=== PATIENT | male | born 1940 | race Caucasian/White ===

== ENCOUNTER 2020-07-22 19:43 | Emergency (ER) | payer MEDICARE, OTHER ==
--- NOTE | 2020-07-22 20:39 | EDM.PDOC ---
ED HPI GENERAL MEDICAL PROBLEM - General Chief Complaint: Genitourinary Problem Stated Complaint: UROLOGY Time Seen by Provider: 07/22/20 19:45 - History of Present Illness INITIAL COMMENTS - FREE TEXT/NARRATIVE: HISTORY AND PHYSICAL: History of present illness: This is an 80-year-old gentleman who was sent into the ER today for assistance with Boudreaux catheter placement. Patient reports that he lives at home with his who assist with caring for him. Patient has diffuse anasarca resulting in significant edema of his uncircumcised foreskin of his penis. Multiple attempts were attempted by the nurse and the physician at his facility to place a Boudreaux catheter unsuccessfully. Patient was sent to the ER for assistance with Boudreaux catheter placement. Patient denies any other symptomatology. Review of systems: As per history of present illness and below otherwise all systems reviewed and negative. Past medical history: As per history of present illness and as reviewed below otherwise noncontributory. Surgical history: As per history of present illness and as reviewed below otherwise noncontributory. Social history: No reported history of drug or alcohol abuse. Family history: As per history of present illness and as reviewed below otherwise noncontributory. Physical exam: Constitutional: Patient is oriented to person, place, and time. Appears well- developed and well-nourished. No distress. HEENT: Dry mucous membranes Head: Normocephalic and atraumatic Eyes: Right eye exhibits no discharge. Left eye exhibits no discharge. No scleral icterus Neck: Normal range of motion. No tracheal deviation present. Cardiovascular: Irregularly irregular, tachycardic Pulmonary: Effort normal, no respiratory distress. Abdominal: Large mass right flank, anasarca identified to umbilicus. Patient was marked edema to his left upper extremity. Musculoskeletal: Patient with marked edema to his left upper extremity and bilateral lower extremities. Patient with significant amount of erythema, war mth to left upper extremity Neurologic: Alert and oriented to person, place and time. Skin: [place], anasarca, cellulitis left upper extremity Psychiatric: Normal mood and affect. Behavior is normal. Judgment and thought content normal. Nursing note and vital signs have been reviewed As ER physical exam is significant for markedly edematous foreskin that is uncircumcised. Patient's penis is retracted significantly within the edematous foreskin. Unable to visualize the head of the meatus secondary to the edema and difficulty to reduce the significant edema to his foreskin. This patient was seen and evaluated during the 2019 SARS-CoV-2 novel coronavirus pandemic period. Community viral transmission is ongoing at time of this encounter and the emergency department is operating under pandemic response procedures. Assessment and plan: 80-year-old gentleman presents ER today for Boudreaux catheter placement that was difficult to place at his home. Patient does have a significant amount of edema. Multiple attempts were made with a blind catheterization secondary to the retracted penis and significant edema of his uncircumcised foreskin. Utilizing an anoscope to assist with visualization of his meatus, were able to identify the urethral opening. Utilizing a stylette to assist with rigidity of the Boudreaux catheter, a 22 Armenian Boudreaux catheter with a 10 cc balloon was easily inserted into his urethral opening. A significant amount of dark yellow clear urine was obtained. Urine was sent for urinalysis. Boudreaux bag was placed on the catheter. Tolerated procedure well. Procedure: Boudreaux catheter placed utilizing stylette for rigidity and guidance into the urethral opening. Patient tolerated procedure well. No bleeding identified or trauma identified. 9 PM: Called to see patient secondary to patient currently in A. fib with RVR. Patient currently has a heart rate of 169 in the ED. Patient's blood pressure is 90/45. Patient reports he has no history significant for atrial fibrillation, rapid heart rates, irregular heart rates in the past. Patient currently is not complaining of any chest pain or shortness of breath. Patient denies any recent fevers, shakes, chills, nausea, vomiting, diarrhea. Upon arrival to the ED, the patient's heart rate has been fluctuating between 75 and 116 bpm. In reviewing EMS records, the patient was slightly tachycardic in r oute to the ED with no documentation of atrial fibrillation. Patient currently appears to be in new onset A. fib with RVR after Boudreaux catheter placement. Patient's blood pressure is low, it appears that his pressure has been running in that same range even prior to his A. fib with RVR. We will initiate a Cardizem drip without a bolus given his low blood pressure. We have considered electrical cardioversion secondary to his low blood pressure and A. fib with RVR however patient currently is clinically asymptomatic and I do not feel that electrical cardioversion will be warranted at this time. I think patient be best served with attempting chemical cardioversion with Cardizem initially and reevaluating if his blood pressure does not tolerate it. Critical Care: The high probability of sudden, clinically significant deterioration in the patient's condition required the highest level of my preparedness to intervene urgently. The services I provided to this patient were to treat and/or prevent clinically significant deterioration. Services included the following: chart data review, reviewing nursing notes and/or old charts, documentation time, customer service sales consultant collaboration regarding findings and treatment options, medication orders and management, direct patient care, vital sign assessments and ordering, interpreting and reviewing diagnostic studies/lab tests. Aggregate critical care time includes only time during which I was engaged inwork directly related to the patient's care, as described above, whether at the bedside or elsewhere in the Emergency Department. It did not in clude time spent performing other reported procedures or the services of residents, students, nurses or physician assistants. Critical Care Time: 35 minutes 12:09 AM: Addendum to patient's care secondary to complexity of patient's history. I was able to contact [facility] to try to obtain some records. Apparently patient was admitted to [facility] on Saturday for evaluation of his anasarca and evaluation for physical therapy/rehab placement. I was able to contact his PA, Raúl Garcia who was able to give me a significant amount of history on his patient. 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 Patient is currently being treated palliatively with comfort measures. Patient has been evaluated by multiple surgeons and no surgical intervention has been advised by any surgeon given his multiple comorbidities. Patient also has a history significant for anemia of chronic disease, anasarca, hypoalbuminemic state, acute ME, hypertension, CAD, squamous cell CA, who was [place] [facility] [place] [facility] for social reasons. Patient lives at home with his who is unable to care for him any further. Patient is a somewhat large individual and she reports to adding that she is unable to transfer or care for him at home. Patient was admitted to the hospital for further evaluation of his anasarca and to assist with some diuresis and to assist with obtaining placement for physical therapy/rehab for the patient. While at [facility], patient was given a small dose of Lasix IV earlier today which resulted in no significant urinary output and a slight decrease in his blood pressure. Patient's blood pressure is 85/60 upon arrival here in the ED. Patient was transferred to [facility] for evaluation of Boudreaux catheter placement. It appears that the care provider as well as the nurses at [facility] tried multiple times unsuccessfully to place a Boudreaux catheter in the patient. At multiple times were unsuccessful secondary to a significant amount of anasarca and swelling of the patient's uncircumcised foreskin and with a markedly retracted penis. According to Raúl, patient was planned on receiving IV albumin today to assist with his anasarca and blood pressure. According to Raúl, patient's white blood cell count on arrival to the hospital was approximately 12,000. Patient's WBC count currently is greater than 20 K with a marked left shift. Patient's records were reviewed and patient does not have a history notable for atrial fibrillation. After placement of patient's Boudreaux catheter, patient was noted to be in A. fib with RVR. Patient's blood pressure has been low however according to abdomen his blood pressure was low upon transfer. He does have a history of hypertension and his metoprolol was DC'd today. In the ED, the patient was started on a Cardizem drip without a bolus. Patient currently is in sinus tachycardia with a heart rate of 120. Patient does still go in and out of A. fib in sinus rhythm while here in the ED. It is unclear whether or not the patient's tachycardia is secondary to sepsis versus intravascular depletion secondary to the Lasix. Patient will be given a 500 cc bolus of IV fluids to counteract the recent Lasix that was given to the patient. While in the hospital, patient's PA, Raúl Garcia, had a long conversation with the patient and the patient wishes to be a full code, although when I have spoken to patient's over the phone and she feels patient should be a DNR. Patient currently is alert awake and orient x3 and had a conversation over the phone on speaker with him and his and patient has affirmed that he wants to be a full code and wants CPR. Patient does not appear to be confused and appears to have insight in his condition. Patient was able to relay to me that CPR should for cardiopulmonary resuscitation. At this time I will need to respect the patient's wishes and the patient will need to be admitted for more aggressive treatment. When I have spoken to Raúl Valdes, he does not feel that [facility] is an appropriate place given his multiple issues that are currently being diagnosed here in the ED. As the patient is a full code, he will need higher level of care. Patient received vancomycin and Zosyn IV for broad-spectrum antibiotic for treatment of cellulitis and sepsis. Patient be given a 500 cc bolus of NSS. At this time, I feel that the 30 cc/kg of NSS for treatment of sepsis would be detrimental to this patient's health secondary to his severe anasarca, poor cardiac status. Patient will be given a 500 cc bolus and reevaluated. Case discussed with Dr. Kim at [facility]. Given that the patient is on a Cardizem drip, he will need ICU bed and they do not have any ICU capabilities at this time. Case was discussed with Dr. rizo at [facility] and she has agreed to assist this with inpatient level of care for this patient. Definitive disposition and diagnosis as appropriate pending reevaluation and review of above. - Related Data Allergies Allergy/AdvReac Type Severity Reaction Status Date / Time No Known Allergies Allergy Verified 07/22/20 20:00 Home Meds: Home Meds Acetaminophen [Tylenol] 650 mg PO QID 07/23/20 [History] Aspirin 81 mg PO DAILY 07/23/20 [History] Metoprolol Succinate [Toprol XL] 12.5 mg PO DAILY 07/23/20 [History] Multivitamin 1 each PO DAILY 07/23/20 [History] ED ROS GENERAL - Review of Systems Review Of Systems: See Below ED EXAM, GENERAL - Physical Exam Exam: See Below Course - Vital Signs Last Recorded V/S: Last Vital Signs Temp 98.9 F 07/22/20 19:45 Pulse 128 H 07/22/20 23:31 Resp 20 07/22/20 23:31 BP 88/55 L 07/22/20 23:31 Pulse Ox 94 L 07/22/20 23:31 - Orders/Labs/Meds Orders: Active Orders 24 hr Category Date Time Status Cardiac Monitoring [RC] . DIRECTED Care 07/22/20 21:38 Active EKG Documentation Completion [RC] AM Care 07/22/20 22:30 Active EKG Documentation Completion [RC] STAT Care 07/22/20 21:36 Active Insert Boudreaux Catheter [Insert Urinary Catheter] [OM.PC] Care 07/22/20 21:00 Ordered Q24H Pulse Oximetry [RC] ASDIRECTED Care 07/22/20 21:38 Active Urinary Catheter Assessment [RC] ASDIRECTED Care 07/22/20 20:54 Active CULTURE BLOOD [BC] Stat Lab 07/22/20 22:45 Received CULTURE BLOOD [BC] Stat Lab 07/22/20 22:55 Received Albumin Human 5% @ 125 MLS/HR x 1(250ml) Med 07/23/20 00:30 Ordered Albumin 5% [Buminate 5%] 250 ml IV Q2H Diltiazem [Cardizem] 100 mg Med 07/22/20 21:45 Active Sodium Chloride 0.9% [Normal Saline] 100 ml IV NOW Sodium Chloride 0.9% [Normal Saline] 1,000 ml Med 07/22/20 21:38 Active IV .Bolus Sodium Chloride 0.9% [Saline Flush] Med 07/22/20 21:38 Active 10 ml FLUSH ASDIRECTED PRN Sodium Chloride 0.9% [Saline Flush] Med 07/22/20 21:38 Active 2.5 ml FLUSH ASDIRECTED PRN Blood Culture x2 Reflex Set [OM.PC] Stat Oth 07/22/20 22:30 Ordered Saline Lock Insert [OM.PC] Stat Oth 07/22/20 21:39 Ordered Medication Orders Sodium Chloride (Normal Saline) 1,000 mls @ 100 mls/hr IV .Bolus ONE Stop: 07/23/20 07:37 Last Admin: 07/22/20 21:58 Dose: 100 mls/hr Documented by: MURDNIC Diltiazem HCl 100 mg/ Sodium (Chloride) 100 mls @ 5 mls/hr IV NOW [facility]; Protocol Last Admin: 07/22/20 21:59 Dose: 5 mg/hr, 5 mls/hr Documented by: MURDNIC Albumin Human (Buminate 5%) 250 mls @ 125 mls/hr IV Q2H VY Stop: 07/23/20 02:29 Sodium Chloride (Saline Flush) 10 ml FLUSH ASDIRECTED PRN PRN Reason: Keep Vein Open Last Admin: 07/22/20 21:58 Dose: 10 ml Documented by: BETTY Sodium Chloride (Saline Flush) 2.5 ml FLUSH ASDIRECTED PRN PRN Reason: Keep Vein Open Last Admin: 07/22/20 21:58 Dose: 2.5 ml Documented by: BETTY Labs: Laboratory Tests 07/22/20 07/22/20 07/22/20 Range/Units 20:30 21:49 21:49 WBC 22.76 H (4.0-11.0) K/uL RBC 3.53 L (4.50-5.90) M/uL Hgb 8.7 L (13.0-17.0) g/dL Hct 29.5 L (38.0-50.0) % MCV 83.6 (80.0-98.0) fL MCH 24.6 L (27.0-32.0) pg MCHC 29.5 L (31.0-37.0) g/dL RDW Std Deviation 69.5 H (28.0-62.0) fl RDW Coeff of Lucrecia 23 H (11.0-15.0) % Plt Count 223 (150-400) K/uL MPV 9.00 (7.40-12.00) fL Add Manual Diff YES Neutrophils % (Manual) 88 H (48.0-80.0) % Band Neutrophils % 3 % Lymphocytes % (Manual) 5 L (16.0-40.0) % Monocytes % (Manual) 4 (0.0-15.0) % Nucleated RBC % 0.0 /100WBC Absolute Seg Neuts 20.0 H (1.4-5.7) Band Neutrophils # 0.7 Lymphocytes # (Manual) 1.1 (0.6-2.4) Monocytes # (Manual) 0.9 H (0.0-0.8) Nucleated RBCs # 0 K/uL Poikilocytosis 1+ SLIGHT INR 1.32 Lactate (0.20-2.00) mmol/L Sodium (136-148) mmol/L Potassium (3.5-5.1) mmol/L Chloride (98-107) mmol/L Carbon Dioxide (21.0-32.0) mmol/L BUN (7.0-18.0) mg/dL Creatinine (0.8-1.3) mg/dL Est Cr Clr Drug Dosing Estimated GFR (MDRD) ml/min Glucose (74-106) mg/dL Calcium (8.5-10.1) mg/dL Magnesium (1.8-2.4) mg/dL Total Bilirubin (0.2-1.0) mg/dL AST (15-37) IU/L ALT (14-63) IU/L Alkaline Phosphatase (46-116) U/L Troponin I (0.000-0.056) ng/mL Total Protein (6.4-8.2) g/dL Albumin (3.4-5.0) g/dL Globulin (2.6-4.0) g/dL Albumin/Globulin Ratio (0.9-1.6) TSH 3rd Generation (0.36-3.74) uIU/mL Urine Color DARK YELLOW Urine Appearance SLT CLOUDY Urine pH 5.0 (5.0-8.0) Ur Specific [place] 1.025 (1.001-1.035) Urine Protein TRACE H (NEGATIVE) mg/dL Urine Glucose (UA) NEGATIVE (NEGATIVE) mg/dL Urine Ketones TRACE H (NEGATIVE) mg/dL Urine Occult Blood TRACE-LYSED H (NEGATIVE) Urine Nitrite POSITIVE H (NEGATIVE) Urine Bilirubin MODERATE H (NEGATIVE) Urine Ictotest NEGATIVE Urine Urobilinogen 2.0 H (<2.0) EU/dL Ur Leukocyte Esterase TRACE H (NEGATIVE) U Hyaline Cast (Auto) 1-4 (0-2/LPF) Urine RBC 0-2 (0-2/HPF) Urine WBC 0-3 (0-5/HPF) Ur Epithelial Cells RARE (NONE-FEW) Calcium Oxalate Crystal RARE (NEGATIVE) Amorphous Sediment LIGHT (NEGATIVE) Urine Bacteria 1+ H (NEGATIVE) Urine Mucus LIGHT (NONE-MOD) SARS-CoV-2 RNA (HERMES) (NEGATIVE) 07/22/20 07/22/20 07/22/20 Range/Units 21:49 21:49 22:33 WBC (4.0-11.0) K/uL RBC (4.50-5.90) M/uL Hgb (13.0-17.0) g/dL Hct (38.0-50.0) % MCV (80.0-98.0) fL MCH (27.0-32.0) pg MCHC (31.0-37.0) g/dL RDW Std Deviation (28.0-62.0) fl RDW Coeff of Lucrecia (11.0-15.0) % Plt Count (150-400) K/uL MPV (7.40-12.00) fL Add Manual Diff Neutrophils % (Manual) (48.0-80.0) % Band Neutrophils % % Lymphocytes % (Manual) (16.0-40.0) % Monocytes % (Manual) (0.0-15.0) % Nucleated RBC % /100WBC Absolute Seg Neuts (1.4-5.7) Band Neutrophils # Lymphocytes # (Manual) (0.6-2.4) Monocytes # (Manual) (0.0-0.8) Nucleated RBCs # K/uL Poikilocytosis INR Lactate 1.6 (0.20-2.00) mmol/L Sodium 145 (136-148) mmol/L Potassium 4.3 (3.5-5.1) mmol/L Chloride 108 H (98-107) mmol/L Carbon Dioxide 27.1 (21.0-32.0) mmol/L BUN 47 H (7.0-18.0) mg/dL Creatinine 2.1 H (0.8-1.3) mg/dL Est Cr Clr Drug Dosing TNP Estimated GFR (MDRD) 30.5 ml/min Glucose 112 H (74-106) mg/dL Calcium 8.5 (8.5-10.1) mg/dL Magnesium 1.9 (1.8-2.4) mg/dL Total Bilirubin 0.9 (0.2-1.0) mg/dL AST 54 H (15-37) IU/L ALT 47 (14-63) IU/L Alkaline Phosphatase 89 (46-116) U/L Troponin I 0.080 H* (0.000-0.056) ng/mL Total Protein 5.3 L (6.4-8.2) g/dL Albumin 1.5 L (3.4-5.0) g/dL Globulin 3.8 (2.6-4.0) g/dL Albumin/Globulin Ratio 0.4 L (0.9-1.6) TSH 3rd Generation 2.54 (0.36-3.74) uIU/mL Urine Color Urine Appearance Urine pH (5.0-8.0) Ur Specific [place]bs (1.001-1.035) Urine Protein (NEGATIVE) mg/dL Urine Glucose (UA) (NEGATIVE) mg/dL Urine Ketones (NEGATIVE) mg/dL Urine Occult Blood (NEGATIVE) Urine Nitrite (NEGATIVE) Urine Bilirubin (NEGATIVE) Urine Ictotest Urine Urobilinogen (<2.0) EU/dL Ur Leukocyte Esterase (NEGATIVE) U Hyaline Cast (Auto) (0-2/LPF) Urine RBC (0-2/HPF) Urine WBC (0-5/HPF) Ur Epithelial Cells (NONE-FEW) Calcium Oxalate Crystal (NEGATIVE) Amorphous Sediment (NEGATIVE) Urine Bacteria (NEGATIVE) Urine Mucus (NONE-MOD) SARS-CoV-2 RNA (HERMES) NEGATIVE (NEGATIVE) Meds: Medications Generic Name Dose Route Start Last Admin Trade Name Freq PRN Reason Stop Dose Admin Sodium Chloride 1,000 mls @ 100 mls/hr 07/22/20 21:38 07/22/20 21:58 Normal Saline IV 07/23/20 07:37 100 mls/hr .Bolus ONE Administration Diltiazem HCl 100 mg/ Sodium 100 mls @ 5 mls/hr 07/22/20 21:45 07/22/20 21:59 Chloride IV 5 mg/hr NOW VY 5 mls/hr Administration Protocol 5 MG/HR Albumin Human 250 mls @ 125 mls/hr 07/23/20 00:30 Buminate 5% IV 07/23/20 02:29 Q2H VY Sodium Chloride 10 ml 07/22/20 21:38 07/22/20 21:58 Saline Flush FLUSH 10 ml ASDIRECTED PRN Administration Keep Vein Open Sodium Chloride 2.5 ml 07/22/20 21:38 07/22/20 21:58 Saline Flush FLUSH 2.5 ml ASDIRECTED PRN Administration Keep Vein Open Discontinued Medications Generic Name Dose Route Start Last Admin Trade Name Freq PRN Reason Stop Dose Admin Acetaminophen 1,000 mg 07/22/20 23:47 07/22/20 23:56 Tylenol Extra Strength PO 07/22/20 23:48 1,000 mg ONETIME ONE Administration Digoxin 500 mcg 07/22/20 22:12 07/22/20 22:24 Lanoxin IVPUSH 07/22/20 22:13 500 mcg ONETIME ONE Administration Vancomycin HCl 1,500 mg/ 100 mls @ 100 mls/hr 07/22/20 22:30 07/23/20 00:11 Sodium Chloride IV 07/22/20 23:29 Not Given ONETIME ONE Piperacillin Sod/Tazobactam 100 mls @ 100 mls/hr 07/22/20 22:30 07/22/20 23:00 Sod 4.5 gm/ Sodium Chloride IV 07/22/20 23:29 100 mls/hr ONETIME ONE Administration Vancomycin HCl 1.5 gm/ Premix 300 mls @ 300 mls/hr 07/23/20 00:06 07/23/20 00:14 IV 07/23/20 00:07 300 mls/hr ONETIME ONE Administration Lidocaine HCl Confirm 07/22/20 19:45 07/22/20 21:15 Xylocaine 2% Viscous Administered 07/22/20 19:46 Not Given Dose 15 ml .ROUTE .STK-MED ONE Lidocaine HCl 15 ml 07/22/20 20:53 07/22/20 21:25 Xylocaine 2% Viscous PO 07/22/20 20:54 15 ml ONETIME ONE Administration Departure - Departure Time of Disposition: 20:39 Disposition: DC/Tfer to Acute Hospital 02 Condition: Poor Clinical Impression: Urinary retention, Encounter for Boudreaux catheter fitting and adjustment, Atrial fibrillation with RVR, Sepsis, Left arm cellulitis, Hypotension, Hypoalbuminemia, Leiomyosarcoma - Discharge Information Instructions: Indwelling Urinary Catheter Care, Adult Referrals: Raúl Garcia PA [Primary Care Provider] - Forms: ED Department Discharge Additional Instructions: You were seen in treated in ER secondary to need for Boudreaux catheter placement. A 20 Armenian Boudreaux catheter was placed with retrieval of clear yellow urine. You have been given instructions on how to take care of your Boudreaux catheter and your Boudreaux catheter bag. Please call your family physician for further instructions regarding care of your catheter and long-term plan. The following information is given to patients seen in the emergency department who are being discharged to home. This information is to outline your options for follow-up care. We provide all patients seen in our emergency department with a follow-up referral. The need for follow-up, as well as the timing and circumstances, are variable depending upon the specifics of your emergency department visit. If you don't have a primary care physician on staff, we will provide you with a referral. We always advise you to contact your personal physician following an emergency department visit to inform them of the circumstance of the visit and for follow-up with them and/or the need for any referrals to a consulting specialist. The emergency department will also refer you to a specialist when appropriate. This referral assures that you have the opportunity for follow-up care with a specialist. All of these measure are taken in an effort to provide you with optimal care, which includes your follow-up. Under all circumstances we always encourage you to contact your private physician who remains a resource for coordinating your care. When calling for follow-up care, please make the office aware that this follow-up is from your recent emergency room visit. If for any reason you are refused follow-up, please contact the [facility] Emergency Department at and asked to speak to the emergency department charge nurse. [facility] [address] [place] [id number] [address] Sepsis Event Note (ED) - Evaluation Sepsis Screening Result: No Definite Risk - Focused Exam Vital Signs: Vital Signs Temp Pulse Pulse Resp BP Pulse Ox 07/22/20 23:31 128 H 20 88/55 L 94 L 07/22/20 22:37 111 H 20 79/58 L 96 07/22/20 22:24 123 H 07/22/20 22:09 128 H 18 97/52 L 94 L 07/22/20 21:09 186 H 20 75/48 L 96 07/22/20 20:37 130 H 20 89/44 L 97 07/22/20 19:50 96 07/22/20 19:45 98.9 F 113 H 20 88/46 L 90 L - My Orders Last 24 Hours: My Active Orders 07/22/20 20:54 Urinary Catheter Assessment [RC] ASDIRECTED 07/22/20 21:00 Insert Boudreaux Catheter [Insert Urinary Catheter] [OM.PC] Q24H 07/22/20 21:36 EKG Documentation Completion [RC] STAT 07/22/20 21:38 Cardiac Monitoring [RC] . DIRECTED Pulse Oximetry [RC] ASDIRECTED Sodium Chloride 0.9% [Normal Saline] 1,000 ml IV .Bolus Sodium Chloride 0.9% [Saline Flush] 10 ml FLUSH ASDIRECTED PRN Sodium Chloride 0.9% [Saline Flush] 2.5 ml FLUSH ASDIRECTED PRN 07/22/20 21:39 Saline Lock Insert [OM.PC] Stat 07/22/20 21:45 Diltiazem [Cardizem] 100 mg Sodium Chloride 0.9% [Normal Saline] 100 ml IV NOW 07/22/20 22:30 EKG Documentation Completion [RC] AM Blood Culture x2 Reflex Set [OM.PC] Stat 07/22/20 22:45 CULTURE BLOOD [BC] Stat 07/22/20 22:55 CULTURE BLOOD [BC] Stat 07/23/20 00:30 Albumin Human 5% @ 125 MLS/HR x 1(250ml) Albumin 5% [Buminate 5%] 250 ml IV Q2H - Assessment/Plan Last 24 Hours: My Active Orders 07/22/20 20:54 Urinary Catheter Assessment [RC] ASDIRECTED 07/22/20 21:00 Insert Boudreaux Catheter [Insert Urinary Catheter] [OM.PC] Q24H 07/22/20 21:36 EKG Documentation Completion [RC] STAT 07/22/20 21:38 Cardiac Monitoring [RC] . DIRECTED Pulse Oximetry [RC] ASDIRECTED Sodium Chloride 0.9% [Normal Saline] 1,000 ml IV .Bolus Sodium Chloride 0.9% [Saline Flush] 10 ml FLUSH ASDIRECTED PRN Sodium Chloride 0.9% [Saline Flush] 2.5 ml FLUSH ASDIRECTED PRN 07/22/20 21:39 Saline Lock Insert [OM.PC] Stat 07/22/20 21:45 Diltiazem [Cardizem] 100 mg Sodium Chloride 0.9% [Normal Saline] 100 ml IV NOW 07/22/20 22:30 EKG Documentation Completion [RC] AM Blood Culture x2 Reflex Set [OM.PC] Stat 07/22/20 22:45 CULTURE BLOOD [BC] Stat 07/22/20 22:55 CULTURE BLOOD [BC] Stat 07/23/20 00:30 Albumin Human 5% @ 125 MLS/HR x 1(250ml) Albumin 5% [Buminate 5%] 250 ml IV Q2H
[2020-07-22] MEDS: Lidocaine 2% Viscous Solution 15 ML Cup ONE (21:15)
[2020-07-22] MEDS: Lidocaine 2% Viscous Solution 15 ML Cup PO ONE (21:25)
[2020-07-22] MEDS: Sodium Chloride 0.9% 1,000 ML IV ONE (21:58)
[2020-07-22] MEDS: Sodium Chloride 0.9% 10 ML Syringe FLUSH PRN (21:58)
[2020-07-22] MEDS: Sodium Chloride 0.9% 2.5 ML Syringe FLUSH PRN (21:58)
[2020-07-22] MEDS: Diltiazem 100 MG in Sodium Chloride 0.9% 100 ML IV SCH (21:59)
--- NOTE | 2020-07-22 22:11 | CR ---
INDICATION: SVT. COMPARISON: None. FINDINGS/IMPRESSION: Portable AP chest radiograph. Mild cardiac prominence. Upper normal pulmonary vasculature. No pleural effusions. Patchy bilateral perihilar infiltrates, more prominent on the left than the right. Pneumonia is a consideration. Postoperative changes in the lower cervical spine. Inferior subluxation, and possible dislocation, of the right humeral head; clinical correlation is recommended and consider dedicated right shoulder radiographs if clinically indicated. Dictated by Kale Gilmore MD @ 07/22/2020 10:09:46 PM Dictated by: Kale Gilmore MD @ 07/22/2020 22:10:10 (Electronically Signed)
[2020-07-22] MEDS: Digoxin 500 MCG/2 ML Amp IVPUSH ONE (22:24)
[2020-07-22 22:26] LABS: BLOOD UREA NITROGEN,BUN 47 mg/dL (7.0-18.0); CARBON DIOXIDE,CO2 27.1 mmol/L (21.0-32.0); CHLORIDE,CL 108 mmol/L (98-107); GLUCOSE RANDOM 112 mg/dL (74-106); POTASSIUM,K 4.3 mmol/L (3.5-5.1); SODIUM,NA 145 mmol/L (136-148)
[2020-07-22] MEDS: Piperacillin/Tazobactam 4.5 GM in Sodium Chloride 0.9% 100 ML IV ONE (23:00)
[2020-07-22] MEDS: Acetaminophen 500 MG Tab PO ONE (23:56)
[2020-07-23] MEDS: Albumin 5% 250 ML IV SCH (01:03)
[2020-07-23] MEDS: Diltiazem 25 MG/5 ML SDV IVPUSH ONE (01:09)
[2020-07-23] MEDS: Diltiazem 25 MG/5 ML SDV ONE (01:28)
== END 2020-07-23 02:20 ==
LOC: MW.ED 19:43
DX: A41.9 Sepsis, unspecified organism (principal); Z46.6 Encounter for fitting and adjustment of urinary device; R33.9 Retention of urine, unspecified; L03.114 Cellulitis of left upper limb; I10 Essential (primary) hypertension; E88.09 Other disorders of plasma-protein metabolism, not elsewhere classified; C49.9 Malignant neoplasm of connective and soft tissue, unspecified; I48.91 Unspecified atrial fibrillation; Z20.822 Contact with and (suspected) exposure to COVID-19; Z79.82 Long term (current) use of aspirin
CPT/HCPCS: 36415; 51702; 71045; 80053; 81001; 83605; 83735; 84443; 84484; 85025; 85610; 87040; 87077; 87186; 93005; 96365; 96366; 96368; 96375; 99285; A9270; J1160; J2543; J3370; J3490; J7030; J7050; P9045; U0002